=== PATIENT | female | born 1945 | race Caucasian/White ===

== ENCOUNTER 2018-10-05 07:55 | Observation (INO) ==
--- NOTE | 2018-09-27 08:50 | Anesthesiology Consultation ---
Date of Service September 27, 2018 Assessment & Plan (1) Encounter for pre-operative examination: Chart Review Chart Review: Acceptable Risk for Surgery and Patient seen in Pre Admission Testing Teaching & Discussion Pre-Anesthesia Teaching/Discussion Notes: Instructed NPO after midnight before surgery,except medications with 15 cc of water. Medication instructions provided according to the PAT guidelines. History Surgery Operation Date: 10/05/18 07:00 Proposed Procedures p Right Breast Lumpectomy with Needle Localization and Right [place] Lymph Node Biopsy - Jesus Frances MD, FACS Height/Weight Height: 5 ft 5 in Weight: 71.7 kg Allergies Allergy/AdvReac Type Severity Reaction Status Date / Time No Known Allergies Allergy Verified 09/25/18 13:21 Medications Home Medications Medication Instructions Recorded Confirmed Last Taken atorvastatin 10 mg PO HS 09/25/18 09/25/18 Unknown biotin 1 mg PO QAM 09/25/18 09/25/18 Unknown calcium carbonate-vitamin D3 1 tab PO QAM 09/25/18 09/25/18 Unknown [Caltrate 600 + D] lactobacillus combination no.4 3,000 mmu cells PO QAM 09/25/18 09/25/18 Unknown [Probiotic] multivitamin 1 cap PO 2XWK 09/25/18 09/25/18 Unknown omega 1-lmc-hxv-fish oil [Fish Oil] 1 cap PO QAM 09/25/18 09/25/18 Unknown pantoprazole 40 mg PO QAM 09/25/18 09/25/18 Unknown Past Medical History Medical History Breast cancer RIGHT GERD (gastroesophageal reflux disease) OCCASIONAL Hyperlipidemia Past Surgical History Surgical History History of breast biopsy History of cataract extraction with lens replacement B/L History of esophagogastroduodenoscopy (EGD) History of surgery DERMOID EXCISION Past Anesthesia History No Hx of Anesthesia Complications and No Family Hx of Anesthesia Complications History of PONV No Motion Sickness Screening History of Motion Sickness: No Social History Smoking Status: Former smoker tobacco type: cigarettes Smoking cigarettes per day: HX OF SOCIAL USE 35 YEARS AGO Do You Dip or Chew Tobacco: No Hx Alcohol Use: No Hx Substance Use: No substance use type: does not use Exercise / Class Metabolic Activity II 4-5 Yardwork/Stairs/Walk up hill Review of Systems Occasional reflux. Patient reports knees and back pain. Patient denies chest pain, shortness of breath, dyspnea on exertion, cough, wheezing, palpitations. Physical Exam Vital Signs VITALS BP 136/78 P 59 TEMP 97.7 RESP 18 SP02 98%RA Patient advised to followup with PCP regarding elevated BP. Full neck and c-spine range of motion. Full TMJ range of motion. TMD 2.5 finger breaths (Small chin) Mallampati Score 3 Dentition: full upper dentures; partial lower dentures Lungs: clear throughout to auscultation Cardiac: regular rate and rhythm, no murmurs noted Spine: normal Carotid arteries: negative bruit Extremities: no edema Testing Electrocardiogram Date: 02/14/18 Findings: + NSR @ (67) Chest X-Ray Date: 09/27/18 Findings: + NAD The heart is top normal for projection, and there is mild atherosclerotic calcification of the thoracic aorta. Nonspecific interstitial thickening is likely chronic. Laboratory Results 09/27/18 09:16 09/27/18 09:16
--- NOTE | 2018-09-27 08:53 | PAT Medication Instructions ---
Medication Instructions Date of Service September 27, 2018 Home Medications atorvastatin 10 mg PO HS biotin 1 mg PO QAM calcium carbonate-vitamin D3 1 tab PO QAM lactobacillus combination no.4 3,000 mmu cells PO QAM multivitamin 1 cap PO 2XWK omega 5-iyn-wvt-fish oil [Fish Oil] 1 cap PO QAM pantoprazole 40 mg PO QAM STOP taking 2 weeks before surgery (or as soon as possible if surgery is within 2 weeks) biotin 1 mg PO QAM omega 3-tzt-gjj-fish oil [Fish Oil] 1 cap PO QAM DO NOT take the morning of surgery calcium carbonate-vitamin D3 1 tab PO QAM lactobacillus combination no.4 3,000 mmu cells PO QAM multivitamin 1 cap PO 2XWK Take morning of surgery With a small sip of water, OTHERWISE NOTHING TO EAT OR DRINK AFTER MIDNIGHT: pantoprazole 40 mg PO QAM Take evening before surgery atorvastatin 10 mg PO HS Other Notes If you have any questions please call us at [phone] or [phone] or [phone] or [phone]
--- NOTE | 2018-09-27 09:53 | XRay Report ---
TWO VIEW CHEST CLINICAL HISTORY: Preoperative examination. FINDINGS: PA and lateral chest radiographs are obtained. No prior studies are available for compariso n at the time of dictation. The heart is top normal for projection, and there is mild atheroscleroti c calcification of the thoracic aorta. Nonspecific interstitial thickening is likely chronic. No airs pace consolidation or pleural effusion is identified. There is no pneumothorax. The skeletal structur es are osteopenic. The bony thorax appears intact. A biopsy marker is noted in the right breast. IMPRESSION: No active disease in the chest. Electronically signed by: Bryce Jacob M.D. 09/27/2018 9:52 AM
[2018-09-27 09:59] LABS: Basophils # (auto) 0.05 K/uL (0-0.2); Basophils % (auto) 1.1 %; Eosinophils # (auto) 0.19 K/uL (0-0.5); Eosinophils % (auto) 4.3 %; Hematocrit (blood only) 37.1 % (37-47); Hemoglobin 12.1 g/dL (12.0-16.0); Lymphocytes # (auto) 1.76 K/uL (1.2-3.4); Lymphocytes % (auto) 39.5 %; Mean Corpuscular Hgb Conc 32.6 g/dL (32-36); Monocytes # (auto) 0.35 K/uL (0.11-0.59); Monocytes % (auto) 7.8 %; Neutrophils # (auto) 2.11 K/uL (1.4-6.5); Neutrophils % (auto) 47.3 %; Platelet Count 181 K/uL (130-400); RDW Coefficient of Variation 12.9 % (11.5-14.5); RDW Standard Deviation 42.2 fL (36.4-46.3); Red Blood Count 4.17 M/uL (4.2-5.4); White Blood Count 4.46 K/uL (4.8-10.8)
[2018-09-27 10:12] LABS: BUN Creatinine Ratio 26.8 (10-20); Calcium 9.1 mg/dl (8.5-10.1); Creatinine Clr Calc Pharmacy 58.5 ml/min; Est GFR (African American) 78.8; Potassium 4.4 mmol/L (3.5-5.1)
[~2018-10-05 07:55] MED LIST: CEFAZOLIN 2000MG 2,000 MG/15 ML SYR IV SCH; LR 15ML/HR IV SCH
--- NOTE | 2018-10-05 09:43 | Nuclear Medicine Report ---
LYMPHOSCINTIGRAPHY CLINICAL HISTORY: Right breast cancer. PROCEDURE: Using standard sterile technique, 4 intradermal and one deep injection of 0.5 mCi of Lymph oseek was placed in the right periareolar breast. The patient tolerated the procedure well. There wer e no immediate complications. The patient was subsequently transported to the surgical suite. No imag ing was obtained at the referring physician's request. IMPRESSION: Injection of 0.5 mCi of Lymphoseek in the right breast. Electronically signed by: Davis Leiva M.D. 10/05/2018 9:42 AM
--- NOTE | 2018-10-05 11:18 | History & Physical Bridge Note ---
Date of Service October 05, 2018 History & Physical Bridge Note I have examined the patient, reviewed the History & Physical and in the interval since the performance of the History & Physical I have noted the following changes of clinical significance: no changes noted
[2018-10-05] MEDS ORDERED: ONDANSETRON INJ 2 MG/ML 2 ML VIAL IV PRN ×2 (11:22→14:29)
[2018-10-05] MEDS ORDERED: fentaNYL citrate 100 MCG/2 ML VIAL IV PRN (11:22)
[2018-10-05] MEDS ORDERED: ePHEDrine sulfate 50 MG/ML AMP IV PRN (11:22)
[2018-10-05] MEDS ORDERED: FLUMAZENIL 0.1 MG/1 ML 10 ML VIAL IV PRN (11:22)
[2018-10-05] MEDS ORDERED: NALOXONE HCL 0.4 MG/1 ML VIAL/CARP IV PRN (11:22)
[2018-10-05] MEDS ORDERED: PROMETHAZINE HCL 12.5 MG in SODIUM CHLORIDE 0.9% 50 ML IV PRN ×2 (11:22→14:29)
[2018-10-05] MEDS ORDERED: LABETALOL HCL IV 5 MG/ML 20ML IV PRN (11:22)
[2018-10-05] MEDS ORDERED: ATROPINE SULFATE 0.1 MG/ML 5ML SYR IV PRN (11:22)
[2018-10-05] MEDS ORDERED: fentaNYL citrate 100 MCG/2 ML VIAL ONE (11:50)
[2018-10-05] MEDS ORDERED: ISOSULFAN BLUE 10 MG/ML VIAL 5 ML ONE (12:06)
[2018-10-05] MEDS ORDERED: BUPIVACAINE 0.5 % 5 MG/1 ML MPF 30ML VIAL ONE (12:06)
[2018-10-05] MEDS ORDERED: PROPOFOL IV EMULSION 10 MG/ML 20 ML VIAL IV ONE (12:41)
[2018-10-05] MEDS ORDERED: ePHEDrine sulfate 50 MG/ML SYR ONE (12:41)
[2018-10-05] MEDS ORDERED: ONDANSETRON INJ 2 MG/ML 2 ML VIAL ONE (12:41)
[2018-10-05] MEDS ORDERED: LIDOCAINE HCL 2% 2 ML VIAL/AMP(20MG/ML) INFIL ONE (12:41)
[2018-10-05] MEDS ORDERED: DEXAMETHASONE SOD INJ 4 MG/ML VIAL ONE (12:41)
--- NOTE | 2018-10-05 13:19 | Operative Report ---
Post Operative Report Date of Surgery October 05, 2018 Pre & Post Diagnosis Operation Date: 10/05/18 12:05 Pre-Op Diagnosis: Right Breast Cancer Post-Op Diagnosis: Right Breast Cancer same Procedure Operation Date: 10/05/18 12:05 Actual Procedures p Right Breast Lumpectomy with Needle Localization and Right [place] Lymph Node Biopsy(Right) - Jesus Frances MD, FACS same Surgeon Jesus Frances MD, FACS Controls Designer Juanita Duncan Estimated Blood Loss 20 Findings Consistent with Post-Op Diagnosis Specimens Rt breast tissue and Rt axillary lymph node I attest to the content of the Intraoperative Record and any orders documented therein. Any exceptions are noted below.
[2018-10-05] MEDS ORDERED: ACETAMINOPHEN 1,000 MG/100 ML VIAL IV ONE (13:45)
--- NOTE | 2018-10-05 14:10 | Anesthesiology Progress Note ---
Date of Service October 05, 2018 Anesthesia Post Procedure Vital Signs Vital Signs: Temp Pulse Pulse Resp BP BP Pulse Ox 10/05/18 14:00 36.4 C L 75 98 10/05/18 13:56 78 138/117 H 97 10/05/18 13:55 78 100 10/05/18 13:51 74 99 10/05/18 13:50 72 144/78 H 100 10/05/18 13:46 75 100 10/05/18 13:45 73 144/78 H 100 10/05/18 13:41 74 100 10/05/18 13:40 73 142/75 H 100 10/05/18 13:36 79 99 10/05/18 13:35 75 144/75 H 100 10/05/18 13:30 36.4 C L 81 76 16 138/69 138/69 100 10/05/18 13:29 100 10/05/18 09:41 36.5 C 62 18 133/81 99 Notes Mental Status: alert / awake / arousable Patient Amnestic to Procedure: Yes Nausea / Vomiting: adequately controlled Pain: adequately controlled Airway Patency, RR, SpO2: stable & adequate BP & HR: stable & adequate Hydration State: stable & adequate Anesthetic Complications: no major complications apparent
[2018-10-05] MEDS ORDERED: MoRPHine SULFATE 2 MG/ML CARP IV PRN (14:29)
[2018-10-05] MEDS ORDERED: SODIUM CHLORIDE 0.9% 1000ML 1,000 ML IV SCH (14:29)
[2018-10-05] MEDS ORDERED: IBUPROFEN 600 MG TAB PO PRN (14:29)
[2018-10-05] MEDS ORDERED: HYDROCODONE/ACETAMOPHEN 5/325MG TAB PO PRN ×2 (14:29)
[2018-10-05] MEDS ORDERED: MoRPHine SULFATE 10 MG/ML CARP/VIAL IV PRN (14:29)
--- NOTE | 2018-10-05 15:00 | Operative Report ---
DATE OF OPERATION: 10/05/2018 NAME OF OPERATION: Needle localization, right lumpectomy, with sentinel lymph node biopsy. PREOPERATIVE DIAGNOSIS: Right breast cancer. POSTOPERATIVE DIAGNOSIS: Same. STAFF SURGEON: Jesus Frances MD. VEGETABLE FARMING SUPERVISOR: Guzman Duncan PA-C. ANESTHESIA: General. DESCRIPTION OF PROCEDURE: Patient was brought in the operating room and placed on the operating room table in supine position. Her right arm was extended on an arm board. She had injection of her right breast for lymphoscintigraphy and also a needle placed in the lower right breast. Initially, incision was made using 0.5% plain Marcaine to anesthetize the skin in the right axilla, carrying dissection down using Neoprobe, identifying a very small sentinel lymph node. It was sent for frozen section. Frozen section was negative. During the frozen section, lumpectomy was performed making an elliptical incision around the needle in the lower part of the breast, carrying dissection down around the needle to the chest wall, taking the fascia off the pectoralis major muscle. Tissue was marked with the needle and skin inferior, short silk suture superior, long silk suture lateral, and methylene blue for the deep/muscle margin. At this point, additional tissue was taken including inferior and superior. This was taken both medial and lateral down to the muscle. They were both marked with long silk suture lateral, short silk suture medial, and methylene blue for new margin. We did place the initial specimen in the Faxitron, sent the image to Dr. Weldon, the clip was in the center of the specimen. At this point, the deep tissue was reapproximated using 2-0 plain suture and then the skin of the axilla reapproximated using 4-0 nylon suture and then the breast using subcuticular 4-0 Monocryl, Steri-Strips. My assistant merchandiser helped with prepping, draping, excision of the breast tissue, and closure of the wounds. I attest to the content of the Intraoperative Record and any orders documented therein. Any exception s are noted below.
--- NOTE | 2018-10-05 15:10 | Mammography Report ---
SPECIMEN RIGHT BREAST: 10/05/2018 CLINICAL HISTORY: Status post right breast surgical specimen. COMPARISON: Comparison is made to exams dated: 08/30/2018 mammogram, 08/18/2018 mammogram - [facility], 08/02/2018 mammogram - [facility], and 10/05/2018 localization - [facility]. Findings: A radiograph was performed of the right breast surgical specimen. The localized biopsy cli p is present centrally within the specimen. The intact needle localization wire is also present. Re sults were discussed with Dr. Frances over the telephone. IMPRESSION: SPECIMEN The imaged specimen contains the preoperativelylocalized biopsy clip. Brandie Weldon M.D. ah/:10/05/2018 13:09:03 Java Grails Developer: RT Betito(R)(M), [facility]
--- NOTE | 2018-10-05 15:10 | Mammography Report ---
NEEDLE LOCALIZATION RIGHT BREAST: 10/05/2018 CLINICAL HISTORY: Biopsy-proven malignancy in the right 7:00 breast. PROCEDURE DESCRIPTION: With imaging guidance, aseptic technique, and 1% lidocaine as the local anesth etic, the mass and associated biopsy marker clip in the right 7:00 breast were localized with a 5 cm Krause II needle. Postprocedural unilateral mammograms were obtained to document wire placement, wh ich shows the mass and associated biopsy marker clip to be located along the distal portion of the wi re proximal to the francisco j.The needle was left in place. The patient tolerated the procedure without co mplication. COMPARISON: Comparison is made to exams dated: 08/30/2018 mammogram, 08/18/2018 mammogram - [facility], and 08/02/2018 mammogram - [facility]. IMPRESSION: NEEDLE LOCALIZATION Ultrasound-guided needle localization of the mass and associated biopsy marker clip in the right 7:00 breast. Brandie Weldon M.D. ah/:10/05/2018 08:27:29 Attending Technologist: Brandie Weldon MD, [facility] Criminal Profiler: Sarah Pisano RT(R)(M), [facility]
--- NOTE | 2018-10-05 15:10 | Mammography Report ---
UNILATERAL RIGHT DIGITAL DIAGNOSTIC MAMMOGRAM: 10/05/2018 CLINICAL HISTORY: Status post right breast needle localization. TECHNIQUE: Right CC and ML tomosynthesis images were obtained. COMPARISON: Comparison is made to exams dated: 08/30/2018 mammogram, 08/18/2018 mammogram - [facility], and 08/02/2018 mammogram - [facility]. BREAST COMPOSITION: The tissue of right breast is extremely dense, which lowers the sensitivity of ma mmography. FINDINGS: Postprocedural unilateral mammograms were obtained after ultrasound-guided needle localization. The localized irregular mass and associated biopsy marker clip in the right 7:00 breast are located along the distal portion of the wire, proximal to the francisco j. IMPRESSION: The localized mass and associated biopsy marker clip are located along the distal portion of the need le localization wire. Some breast cancers are not detected with mammography. A negative mammographic report should not mao y biopsy if a clinically suggestive mass is present. Brandie Weldon M.D. ah/:10/05/2018 08:30:50 Systems Software Developer: RT Betito(Karen)(M), [facility] BI-RADS Code: n/a
[2018-10-05] MEDS: CEFAZOLIN 1000MG 1,000 MG/7.5 ML SYR IV SCH (20:02)
[2018-10-05] MEDS: ACETAMINOPHEN 325 MG TAB PO PRN (20:02)
[2018-10-05] MEDS ORDERED: ATORVASTATIN 10 MG TAB PO SCH (21:00)
[2018-10-06] MEDS: CEFAZOLIN 1000MG 1,000 MG/7.5 ML SYR IV SCH (04:03)
[2018-10-06] MEDS: ACETAMINOPHEN 325 MG TAB PO PRN (06:20)
--- NOTE | 2018-10-06 06:36 | Discharge Summary ---
PRINCIPAL DIAGNOSIS: Right breast cancer. PROCEDURES: The patient underwent needle localization, right breast lumpectomy with sentinel lymph node biopsy. HISTORY OF PRESENT ILLNESS: The patient is a 73-year-old female with biopsy proven right breast cancer for definitive surgery. HOSPITAL COURSE: The patient was brought into the hospital on 10/05/2018 where she underwent needle localization and then breast injection for lymphoscintigraphy. She was taken to the operating room where she underwent needle localization right lumpectomy with sentinel lymph node biopsy. [place] lymph node was negative. The patient has done quite well and is ready for discharge home today to be followed in the surgical clinic within 1 week.
[2018-10-06 06:57] VITALS: BP 117/72; TEMP 98.4; O2SAT 94
[2018-10-06 07:00] VITALS: PULSE 80
== END 2018-10-06 09:00 | disposition home or self-care (01) ==
LOC: 3W 07:55 → ASU 07:55